=== PATIENT | male | born 1990 | race African-American/Black ===

== ENCOUNTER 2025-02-05 06:37 | Emergency (ER) | payer OTHER ==
[2025-02-05 06:45] VITALS: PULSE 91; RESP 18; O2SAT 100
== END 2025-02-05 07:16 | disposition left against medical advice (07) ==
LOC: ER 06:37
DX: R51.9 Headache, unspecified (principal); Z53.21 Procedure and treatment not carried out due to patient leaving prior to being seen by health care provider